=== PATIENT | male | born 1970 | race Caucasian/White ===

== ENCOUNTER 2020-02-19 12:01 | Outpatient (REF) | payer OTHER, SELFPAY ==
--- NOTE | 2020-02-19 12:33 | XR_ITS ---
EXAMINATION: XR SHOULDER, LEFT CLINICAL INFORMATION: Shoulder pain. COMPARISON: None TECHNIQUE: AP external rotation, Grashey, scapular Y, and axillary views of the left shoulder. FINDINGS: No fracture. Glenohumeral and acromioclavicular alignment is anatomic with normal joint space. No abnormal soft tissue calcifications. XR/XR shoulder LT min 2V IMPRESSION: Unremarkable left shoulder radiographs.
--- NOTE | 2020-02-19 12:33 | XR_ITS ---
EXAMINATION: XR LUMBOSACRAL SPINE CLINICAL INFORMATION: Low back pain. COMPARISON: None TECHNIQUE: Three views of the lumbosacral spine. FINDINGS: Normal posterior alignment without significant subluxation. No anterior compression deformities. No acute fracture seen. [id number] L1-L2 disc degeneration. Mild endplate spurring otherwise in the lumbar spine. Multilevel facet degeneration. Mild bilateral SI joint arthritis. XR/XR lumbar spine 2-3V IMPRESSION: Lumbar spondylosis. Jcag-[id number] L1-L2 disc degeneration.
--- NOTE | 2020-02-19 12:33 | XR_ITS ---
EXAMINATION: XR CHEST CLINICAL INFORMATION: J44.9 - Chronic obstructive pulmonary disease, unspecified COMPARISON: Chest radiographs 08/20/2018 TECHNIQUE: 2 views of the chest were obtained. FINDINGS: The lungs are clear. The vascularity is normal. There is no significant hyperinflation. There is no airspace consolidation or groundglass opacity. The costophrenic sulci are clear. The heart is normal in size. The hilar and mediastinal contours and bony structures are stable. XR/XR chest 2V IMPRESSION: Unremarkable examination.
[2020-02-19 12:56] LABS: Basophils Percent Auto 0.2 % (0-2); Eosinophils Absolute Auto 0.1 X10*3/uL (0.0-0.4); Eosinophils Percent Auto 0.5 % (0-4); Hematocrit 40.1 % (42-52); Hemoglobin 13.6 g/dl (14.0-18.0); Imm Gran Abs Auto 0.02 X10*3/uL (0.00-0.03); Imm Gran Pct Auto 0.2 % (0.0-0.4); Lymphocytes Absolute Auto 1.8 X10*3/uL (1.2-4.9); Lymphocytes Percent Auto 19.4 % (20-40); MANUAL DIFF FLAG NO; Mean Corpuscular HGB Conc 33.9 g/dl (31.0-36.0); Mean Corpuscular Hemoglobin 31.9 pg (27.0-33.0); Mean Corpuscular Volume 94.1 fL (80-98); Mean Platelet Volume 10.8 fL (9.4-12.4); Monocytes Absolute Auto 0.5 X10*3/uL (0.1-1.2); Monocytes Percent Auto 4.9 % (2-11); Neutrophils Absolute Auto 7.1 X10*3/uL (2.0-8.3); Neutrophils Percent Auto 74.8 % (45-73); Platelet Count 252 X10*3/uL (160-400); Red Blood Count 4.26 X10*6/uL (4.60-5.80); Red Cell Distribution Width 13.8 % (11.0-16.0); White Blood Count 9.5 X10*3/uL (4.8-10.8)
[2020-02-19 13:02] LABS: Estimated Average Glucose 97 mg/dL
[2020-02-19 13:33] LABS: Alanine Aminotransferase 23 U/L (0-40); Albumin Level 4.1 g/dL (3.5-5.0); Alkaline Phosphatase 84 U/L (39-117); Anion Gap 11 (12-20); Aspartate Amino Transferase 19 U/L (5-37); Bilirubin Total 0.4 mg/dL (0.0-1.0); Blood Urea Nitrogen 12 mg/dL (9-16); Calcium 8.7 mg/dL (8.4-10.2); Carbon Dioxide 31 mmol/L (22-29); Chloride 106 mmol/L (96-108); Cholesterol 156 mg/dL; Estimated Glomerular Filt Rate > 60; Glucose Fasting 74 mg/dL (60-99); HDL Cholesterol 42 mg/dL; LDL Cholesterol Calculated 101 mg/dl; Potassium 3.9 mmol/l (3.3-5.1); Sodium 144 mmol/L (135-145); Total Protein 6.7 g/dL (6.5-8.0); Triglycerides 68 mg/dL
[2020-02-19 13:45] LABS: Syphilis Screen Nonreactive (Nonreactive)
[2020-02-20 04:20] LABS: HBc Num1 0.19 S/CO (0.00-0.79); HBsAGNum1 0.19 S/CO (0.00-0.99); HIV AB/AG Nonreactive (Nonreactive); HIV Num 1 0.06 S/CO (0.00-0.99); Hepatitis B Core Antibody Nonreactive (Nonreactive); Hepatitis B Surface Antigen Negative (Negative); ~Hepatitis C Antibody Reactive (Nonreactive)
[2020-02-20 04:22] LABS: HBS Num1 0.56 mIU/mL (0-7.99); ~Hepatitis B Surface Antibody NONREACTIVE (Nonreactive)
== END 2020-02-19 12:02 | disposition home or self-care (01) ==
LOC: HO.LAB 12:01
PROVIDERS: Absent Provider Internal Medicine; PCP Internal Medicine; Visit Provider Physician Assistant
DX: E78.00 Pure hypercholesterolemia, unspecified (principal); I10 Essential (primary) hypertension; K21.9 Gastro-esophageal reflux disease without esophagitis; R73.01 Impaired fasting glucose; Z11.3 Encounter for screening for infections with a predominantly sexual mode of transmission; M54.5 Low back pain
CPT/HCPCS: 36415; 71046; 72100; 73030; 80053; 80061; 83036; 85025; 86704; 86706; 86780; 86803; 87340; 87389

== ENCOUNTER 2020-02-19 13:15 | Emergency (ER) | payer OTHER, SELFPAY ==
[2020-02-19 13:21] VITALS: BP 115/77; PULSE 80; RESP 17; TEMP 36.3; O2SAT 96; BMI 23.8
--- NOTE | 2020-02-19 14:13 | ED.DENTAL ---
HPI - Dental/Oral General Chief complaint: Dental/Oral Stated complaint: dental pain Time Seen by Provider: 02/19/20 14:12 Source: patient Mode of arrival: ambulatory Limitations: no limitations History of Present Illness HPI Narrative: 50 y/o male presenting with lower right dental pain for 1 month. He reports chronic dental issues and has not been to a dentist in years. He recently got new health insurance and has been unable to get in with a new one that takes his insurance. He was previously on antibiotics when it started with some improvement in the pain but once his antibiotics stopped the pain worsened. He has been taking Aleve without improvement. He denies fevers, facial swelling, difficulty swallowing. MD Complaint: tooth pain Location: Tooth # Teeth map: 1. dental decay 2. dental decay 3. dental decay Onset (ago): week(s) (4) Duration: constant Severity: severe Severity scale (1-10): 9 Relieving factors: nothing Exacerbating factors: chewing, cold and heat Context: history of dental caries Associated symptoms: gum swelling Treatment prior to arrival: none Related Data Home Medications Medication Instructions Recorded Confirmed albuterol sulfate 90 mcg/actuation 2 puff INHALATION .4 TIMES A DAY 01/10/20 02/19/20 aerosol inhaler PRN g benztropine 1 mg tablet 1 mg PO BID 01/10/20 02/19/20 cevimeline 30 mg capsule 1 cap PO TID 01/10/20 02/19/20 fluoxetine 20 mg capsule 20 mg PO DAILY 01/10/20 02/19/20 haloperidol 10 mg tablet 10 mg PO BID 01/10/20 02/19/20 meloxicam 7.5 mg tablet 7.5 mg PO DAILY PRN 01/10/20 02/19/20 montelukast 10 mg tablet 10 mg PO BEDTIME 01/10/20 02/19/20 acetaminophen 650 mg 650 mg PO Q6H tab 02/05/20 02/19/20 tablet,extended release omeprazole 20 mg capsule,delayed 0 mg PO 02/19/20 02/19/20 release propranolol 10 mg tablet 10 mg PO BID 02/19/20 02/19/20 risperidone 2 mg tablet 2 mg PO BEDTIME 02/19/20 02/19/20 Previous Rx's Medication Instructions Recorded omega-3 fatty acids-fish oil 340 1 cap PO DAILY #90 cap 12/27/19 mg-1,000 mg capsule pregabalin 300 mg capsule 300 mg PO BID #60 cap 01/10/20 lorazepam 1 mg tablet 1 mg PO TID PRN 28 Days #84 tab 01/15/20 chlorhexidine gluconate 15 ml BUCCAL BID #118 ml 02/19/20 ibuprofen 600 mg PO Q8H PRN #20 tab 02/19/20 penicillin V potassium 500 mg PO Q8H #21 tab 02/19/20 tramadol 50 mg PO Q8H PRN #9 tab 02/19/20 Allergies Allergy/AdvReac Type Severity Reaction Status Date / Time bupropion [From WELLBUTRIN] Allergy Unknown UNKNOWN Verified 02/19/20 12:23 diclofenac Allergy Unknown edema Verified 02/19/20 12:23 ibuprofen [From MOTRIN] Allergy Unknown FEET SWELLS Verified 02/19/20 12:23 risperidone [RISPERIDONE] Allergy Unknown GYNECOMASTI Verified 02/19/20 12:23 A Review of Systems Review of Systems: Constitutional: No Fever, No Chills ENT/Mouth: No sore throat, No Rhinorrhea, No Swallowing Difficulty, +dental pain Cardiovascular: No Chest Pain, No SOB Respiratory: No Cough, No Sputum Gastrointestinal: No Nausea, No Vomiting Skin: No Skin Lesions, No rash Neuro: + Headache Heme/Lymph: No Lymphadenopathy PMFSH Past Medical History Attestation statement: The following information was validated with the patient. Medical History Anxiety COPD (chronic obstructive pulmonary disease) GERD (gastroesophageal reflux disease) History of substance abuse Impaired fasting glucose Left shoulder pain Low back pain without sciatica Osteoarthritis Pure hypercholesterolemia Schizoaffective disorder Surgical History No pertinent past surgical history Family History Family History (Updated 02/19/20 @ 12:[address] Hughes MD) Father Medical history unknown Mother Diabetes Chronic mental illness Social History Social History (Updated 02/19/20 @ 12:[address] Hughes MD) Alcohol intake: former Smoking Status: Current every day smoker Tobacco Type: Cigarette Cigarettes Per Day: 31 Advance Directives: No Advance Directives Information Provided: No Physical Exam Vital Signs: Vital Signs: Last Vital Signs Temp 97.4 F 02/19/20 13:21 Pulse 80 02/19/20 13:21 Resp 17 02/19/20 13:21 BP 115/77 02/19/20 13:21 Pulse Ox 96 02/19/20 13:21 Body Mass Index 23.8 Const: General: cooperative, no acute distress, well developed, alert and awake Orientation/consciousness: patient oriented x3 HENMT: Head: Yes normal to inspection Ears: hearing grossly normal bilaterally General nose exam: Normal external nose present Mouth: lip normal, tongue normal and moist mucous membranes Teeth and gingiva: gingiva abnormal edematous and tender and poor dentition Teeth image: 1. severe dental decay 2. severe dental decay Throat: Yes posterior oropharynx normal, Yes tonsils normal and Yes uvula midline Eyes: General: appearance normal, both eyes and all related structures Neck: Neck: Yes normal visual inspection and Yes no lymphadenopathy Chest: Chest palpation & inspection: normal inspection of the chest Resp: Effort & Inspection: normal respiratory effort and able to speak in complete sentences Neuro: General: patient oriented x3 and gait normal Extrem: General: Yes normal to inspection Psych: Appearance: disheveled Mental Status: mental status grossly normal Speech and movement: Normal speech and movement present Affect: Blunted affect present Attitude: cooperative Course Course Course Narrative: 50 y/o male presenting with ongoing dental pain for 1 month. Insurance issues barrier to being evaluated by dentist. His exam is consistent with diffuse dental decay and caries. No appreciated abscess. List of local dentists has been provided and the importance of follow up stressed. Will give abx, NSAID and brief course of pain meds. Stable for d/c. MDM - Dental/Oral Differential Diagnosis Differential diagnosis: Likely gingival abscess, dental caries, toothache, dental abscess and fracture of tooth Critical Care Time Critical Care Time Critical Care Time: No Discharge Plan Discharge Clinical Impression: Dental caries Patient Disposition: Home, Self-Care Instructions: Toothache (ED), Mouth Care (ED) Additional Instructions: You must follow up with a dentist RAJESH. A list of local dentists have been provided to you. There are several teeth with significant decay that will likely require extraction. Take the prescribed antibiotics for possible infection and use the anti-septic mouth wash two times per day. Stop taking Aleve and start taking prescribed Ibuprofen every 8 hours. If you develop facial swelling, difficulty swallowing, fevers, worsening pain or any other concerning symptom come back to the ER for further evaluation. Prescriptions: New penicillin V potassium 500 mg tablet 500 mg PO Q8H Qty: 21 RF: 0 tramadol 50 mg tablet 50 mg PO Q8H PRN (Reason: pain) Qty: 9 RF: 0 ibuprofen 600 mg tablet 600 mg PO Q8H PRN (Reason: pain) Qty: 20 RF: 0 chlorhexidine gluconate 0.12 % mouthwash 15 ml buccal BID Qty: 118 RF: 0 No Action omega-3 fatty acids-fish oil [Fish Oil] 340-1,000 mg capsule 1 cap PO DAILY Qty: 90 RF: 0 lorazepam [Ativan] 1 mg tablet 1 mg PO TID PRN (Reason: anxiety) 28 Days Qty: 84 RF: 0 acetaminophen [Arthritis Pain Relief (acetam)] 650 mg tablet extended release 650 mg PO Q6H RF: 0 montelukast 10 mg tablet 10 mg PO BEDTIME RF: 0 fluoxetine 20 mg capsule 20 mg PO DAILY RF: 0 haloperidol 10 mg tablet 10 mg PO BID RF: 0 albuterol sulfate [ProAir HFA] 90 mcg/actuation HFA aerosol inhaler 2 puff inhalation .4 TIMES A DAY PRNRF: 0 meloxicam 7.5 mg tablet 7.5 mg PO DAILY PRN (Reason: pain) RF: 0 benztropine 1 mg tablet 1 mg PO BID RF: 0 cevimeline 30 mg capsule 1 cap PO TID RF: 0 pregabalin 300 mg capsule 300 mg PO BID Qty: 60 RF: 0 omeprazole 20 mg capsule,delayed release(DR/EC) 0 mg PO RF: 0 propranolol 10 mg tablet 10 mg PO BID RF: 0 risperidone 2 mg tablet 2 mg PO BEDTIME RF: 0
== END 2020-02-19 14:45 | disposition home or self-care (01) ==
PROVIDERS: Emergency Provider Emergency Medicine; PCP Internal Medicine
DX: K02.9 Dental caries, unspecified (principal); F17.210 Nicotine dependence, cigarettes, uncomplicated
CPT/HCPCS: 99283